=== PATIENT | female | born 1945 | race Caucasian/White ===

== ENCOUNTER → 2019-09-13 11:05 | Outpatient (BNVA) | payer MEDICARE, SELFPAY | PROVIDERS: Family Provider Family Medicine; PCP Family Medicine; Visit Provider Anesthesiology | DX: M17.12 Unilateral primary osteoarthritis, left knee (principal); M25.561 Pain in right knee; M54.5 Low back pain; F17.210 Nicotine dependence, cigarettes, uncomplicated; Z79.891 Long term (current) use of opiate analgesic; Z71.6 Tobacco abuse counseling | CPT/HCPCS: 99214 ==

== ENCOUNTER 2019-12-05 13:06 | Outpatient (CLI) | payer MEDICARE, SELFPAY ==
--- NOTE | 2019-12-05 13:13 | CT_ITS ---
WS: [id number] CT ABDOMEN PELVIS TECHNIQUE: Contrast-enhanced CT of the abdomen and pelvis with coronal and sagittal reformatted image s. CLINICAL INFORMATION: ABDOMINAL PAIN, RIGHT UPPER QUADRANT . COMPARISON: April 18, 2013 DLP: 1074.[address] scans at use at least one of these dose optimization techniques: automat ed exposure control; mA and/or kV adjustment per patient size (includes targeted exams where dose is matched to clinical indication); or iterative reconstruction. FINDINGS: Mild diffuse fatty infiltration of the liver. Mild intrahepatic biliary ductal dilatation. Gallbladde r is removed. Prominent common bile duct can be seen postcholecystectomy. Normal portal vein and sple david vein. Mild fatty atrophy of the pancreas. Splenic granulomas. Small esophageal hiatal hernia. Adrenal glands are normal. Normal renal parenchymal enhancement. No hydronephrosis. No abdominal or pelvic lymphadenopathy. Small infrarenal abdominal aortic aneurysm with moderate aor tic atheromatous disease. This measures approximately 1.7 x 1.9 cm AP by transverse. Chronic emphysem atous changes. Fibrosis in the lung bases. Slight anterolisthesis L4 on L5. Disc space narrowing L4-L 5. Normal sigmoid colon. No evidence of small or large bowel obstruction. No abdominal or periaortic lym phadenopathy. No inguinal lymphadenopathy. Incidental fat-containing umbilical hernia. CT/CT abdomen pelvis w con* [id number] IMPRESSION: 1. Mild diffuse fatty infiltration the liver with mild intrahepatic biliary du ct dilatation and prominent common bile duct physiologic postcholecystectomy. 2. Normal bilateral renal parenchymal enhancement. No hydronephrosis. 3. Small infrarenal abdominal aortic aneurysm with moderate atheromatous disea se. This measures 1.7 x 1.9 cm AP by transverse. 4. No evidence of small or large bowel obstruction. No free fluid in the pelvi s. 5. No abdominal or pelvic lymphadenopathy. 6. Emphysematous change with fibrosis in the lung bases.
[2019-12-05] MEDS: iohexol 300 mg/mL 50 mL Btl PO (14:21)
[2019-12-05] MEDS: iohexol 300 mg/mL 100 mL Btl IV (15:09)
== END 2019-12-05 13:07 | disposition home or self-care (01) ==
LOC: RADWPI 13:11
PROVIDERS: Family Provider Family Medicine; PCP Family Medicine; Visit Provider Family Medicine
DX: R16.0 Hepatomegaly, not elsewhere classified (principal); K76.0 Fatty (change of) liver, not elsewhere classified; I71.4 Abdominal aortic aneurysm, without rupture; J43.8 Other emphysema; J84.10 Pulmonary fibrosis, unspecified; R10.11 Right upper quadrant pain
CPT/HCPCS: 74177; Q9967

== ENCOUNTER → 2020-02-25 08:44 | Outpatient (BNVA) | payer MEDICARE, SELFPAY | PROVIDERS: Family Provider Family Medicine; PCP Family Medicine; Visit Provider Anesthesiology | DX: M17.12 Unilateral primary osteoarthritis, left knee (principal); M25.561 Pain in right knee; F17.210 Nicotine dependence, cigarettes, uncomplicated; Z79.891 Long term (current) use of opiate analgesic; Z71.6 Tobacco abuse counseling | CPT/HCPCS: 99214 ==

== ENCOUNTER → 2020-04-22 08:53 | Outpatient (BNVA) | payer MEDICARE, SELFPAY | PROVIDERS: Family Provider Family Medicine; PCP Family Medicine; Visit Provider Anesthesiology | DX: M17.12 Unilateral primary osteoarthritis, left knee (principal); M25.561 Pain in right knee; F17.210 Nicotine dependence, cigarettes, uncomplicated; Z79.891 Long term (current) use of opiate analgesic | CPT/HCPCS: 99213; 99214 ==

== ENCOUNTER 2020-11-06 12:38 | Outpatient (CLI) | payer MEDICARE, SELFPAY ==
--- NOTE | 2020-11-06 12:51 | XR_ITS ---
WS: [id number] Left knee, 3 views, 11/06/2020 Clinical Data: LEFT KNEE PAIN Comparison: None. Findings: No fractures or dislocations are seen. There is joint space narrowing of the medial and lateral joint compartments. There are osteophytic spurs of the medial lateral tibial plateau and the medial latera l femoral condyles. There is posterior spurring of the left patella. The soft tissues are unremarkabl e. XR/XR knee LT 3V* [id number] Impression: Osteoarthritis of all the joint compartments of the left knee.
--- NOTE | 2020-11-06 12:51 | XR_ITS ---
WS: [id number] Right knee, 3 views, 11/06/2020 Clinical Data: RIGHT KNEE PAIN Comparison: None. Findings: No fractures or dislocations are seen. There is medial joint compartment narrowing. The patella poste rior spurring.. The soft tissues are unremarkable. XR/XR knee RT 3V* [id number] Impression: Osteoarthritic narrowing of the medial joint compartment and posterior patella of the right knee.
== END 2020-11-06 12:39 | disposition home or self-care (01) ==
LOC: RAD 12:46
PROVIDERS: PCP Family Medicine; Visit Provider Family Medicine
DX: M25.561 Pain in right knee (principal); M17.12 Unilateral primary osteoarthritis, left knee
CPT/HCPCS: 73562

== ENCOUNTER → 2021-03-26 07:54 | Outpatient (BNVA) | payer MEDICARE, SELFPAY | PROVIDERS: PCP Family Medicine; Visit Provider Nurse Practitioner Family | DX: Z20.822 Contact with and (suspected) exposure to COVID-19 (principal) | CPT/HCPCS: 87635 ==